=== PATIENT | female | born 1995 | race African-American/Black ===

== ENCOUNTER → 2018-12-14 | Outpatient (CLI) | payer BC ==
--- NOTE | 2018-12-15 08:44 | EEG ---
DATE OF SERVICE: 12/14/2018 EEG NUMBER: [id number] OBJECTIVE: The patient is a 23-year-old female with developmental delay and staring episodes. DESCRIPTION: This is a digital study. Electrodes are placed according to the international 10-20 system. Bipolar and referential montages are available. Activation procedures typically include hyperventilation and intermittent photic stimulation. INTERPRETATION: The waking background consists of 9-10 Hz, 50-100 microvolt activity, symmetrically distributed over parietooccipital regions and reactive to eye opening. Hyperventilation and intermittent photic stimulation are noncontributory. Sleep is not achieved. IMPRESSION: This electroencephalogram with the patient awake only is within normal limits. There is no focal, paroxysmal, or epileptiform activity. Thank you for letting us help with the patient's care. JEVON LEE MD DR: CASS/rosalina JOB#: [id number] / [id number] JAVY Flynn MD
== END | disposition home or self-care (01) ==
LOC: RT 11:15
PROVIDERS: ATTEND Psychiatry & Neurology Neurology with Special Qualifications in Child Neurology
DX: R40.4 Transient alteration of awareness (principal); R62.50 Unspecified lack of expected normal physiological development in childhood
CPT/HCPCS: 95816